=== PATIENT | female | born 1955 | race Caucasian/White ===

== ENCOUNTER 2018-07-05 11:47 | Emergency (ER) | payer OTHER ==
--- NOTE | 2018-07-05 12:28 | EDPHY ---
H & P Stated Complaint: n/v/d, dizziness, vertigo Time Seen by Provider: 07/05/18 12:27 - Personal History Current Tetanus Diphtheria and Acellular Pertussis (TDAP): Unsure - Medical/Surgical History Hx Asthma: No Hx Chronic Respiratory Disease: No Hx Diabetes: No Hx Cardiac Disease: No Hx Renal Disease: No Hx Cirrhosis: No Hx Alcoholism: No Hx HIV/AIDS: No Hx Splenectomy or Spleen Trauma: No Other PMH: hypothyroid, vertigo - Social History Smoking Status: Never smoked Constitutional: Initial Vital Signs Temperature (C) 36.5 C 07/05/18 12:00 Heart Rate 78 07/05/18 12:00 Respiratory Rate 17 07/05/18 12:00 Blood Pressure 175/89 H 07/05/18 12:00 O2 Sat (%) 96 07/05/18 12:00 O2 Delivery Mode Room Air Allergies/Adverse Reactions: acetaminophen [From Percocet] Allergy (Verified 07/05/18 12:07) oxycodone [From Percocet] Allergy (Verified 07/05/18 12:07) Penicillins Allergy (Verified 07/05/18 12:07) prochlorperazine [From Compazine] Allergy (Verified 07/05/18 12:07) Home Medications: Medication Instructions Recorded LORazepam [Ativan 1 mg (RX)] 1 mg PO TID PRN #14 tab 07/05/18 Meclizine HCl [Meclizine HCl 12.5 12.5 mg PO QID PRN #20 tab 07/05/18 mg (*)] Synthroid 07/05/18 Medical Decision Making ED Course/Re-evaluation: CHIEF COMPLAINT: Dizziness, N/V HISTORY OF PRESENT ILLNESS: The patient is a 62 y/o female with a history of M nire's disease complaining of severe dizziness, nausea, and vomiting onset this morning following similar symptoms one week ago. She was diagnosed with M nire's several years ago following a history of mild balance issues and " stuffy ears" with a negative brain MRI. Her symptoms at that time were quite mild compared to her two recent episodes. Today she says her symptoms are "10 times as bad" as one week ago. She can't walk or move her body or head without severe aggravation of symptoms. She has been unable to tolerate PO fluids. She denies weakness, paresthesias, vision changes, fever, recent illness, recent trauma. Her last brain MRI was in 2014 at [facility] and was normal. REVIEW OF SYSTEMS: A comprehensive 10 system review of systems is otherwise negative aside from elements mentioned in the history of present illness and medical decision making. PHYSICAL EXAM: HR, BP, O2 Sat, RR. Temp noted General Appearance: Alert, well hydrated, appropriate, uncomfortable-appearing lying on left side not moving. Head: Atraumatic without scalp tenderness or obvious injury Eyes: Pupils equal, round, reactive to light and accommodation, EOMI, no trauma , no injection. Ears: Clear bilaterally, no perforation, normal landmarks Nose: Atraumatic, no rhinorrhea, clear. Throat: Mucus membranes moist. Neck: Supple, nontender, no lymphadenopathy. Respiratory: No retractions, no distress, no wheezes, and no accessory muscle use. Lungs are clear to auscultation bilaterally. Cardiovascular: Regular rate and rhythm, no murmurs, rubs, or gallops. Good capillary refill all extremities. Gastrointestinal: Abdomen is soft, nontender, non-distended, no masses, no rebound, no guarding, no peritoneal signs. Musculoskeletal: Normal active ROM of all extremities, atraumatic. Neurological: Alert, appropriate, and interactive. The patient has non-focal cranial nerves, motor, sensory, and cerebellar exam. Skin: No rashes, good turgor, no nodules on palpation. Past medical history: Hypothyroidism, Mnire's disease, prior brain MRIs at [facility] Past surgical history: Noncontributory Family history: Noncontributory Social history: at bedside. Lives in [place]. [employer] employee. Reviewed 2014 MRI w/wout impression ordered by Dr. Cali at [facility] on patient's phone - no abnormalities in pontine or temporal bone, normal clear canals, no signs of infarct. DIFFERENTIAL DIAGNOSIS: The differential diagnosis for the patient's dizziness included but was not limited to peripheral and central causes of vertigo, orthostatic causes including dehydration, cardiogenic and neurogenic causes, and blood loss. MEDICAL DECISION MAKING: This is a 62 y/o female with a history of Mnire's disease who presents with her second bout of severe dizziness and nausea and vomiting this week. She is quite uncomfortable on exam and very reluctant to move due to how significantly this exacerbates her symptoms. Neuroimaging considered, but will not proceed at this time as she's had complete prior work up for similar but milder symptoms and has no neuro deficits on exam. Plan for ISTAT and symptomatic treatment with 2L IV NS, 4mg IV Zofran, 25mg IV Benadryl, 1mg PO Ativan. 1350: Reassessed patient. She is sleeping comfortable. 1435: Reassessed patient. Her symptoms have improved significantly, though she feels groggy from the medications. Reassessed patient and discussed findings. She is feeling much better and is able to walk through the department with assistance due to some unsteadiness. I offered admission, but she would prefer to go home with mediations and sleep in her own bed. Scripts for Zofran, Meclizine, and Ativan provided. Recommended following up with her neurologist this week. Return precautions discussed. She is comfortable with this plan. - Data Points Laboratory Results: 07/05/18 13:13 POC Hgb 14.3 gm/dL gm/dL (12.6-16.3) POC Hct 42 % % (38-47) POC Sodium 142 mEq/L mEq/L (135-145) POC Potassium 3.6 mEq/L mEq/L (3.3-5.0) POC Chloride 107 mEq/L mEq/L (97-110) POC BUN 17 mg/dL mg/dL (7-23) POC Creatinine 0.8 mg/dL mg/dL (0.6-1.0) POC Glucose 149 mg/dL H mg/dL (70-100) Medications Given: Discontinued Medications Diphenhydramine HCl (Benadryl Injection) 25 mg IVP EDNOW ONE Stop: 07/05/18 12:56 Last Admin: 07/05/18 13:00 Dose: 25 mg Sodium Chloride (Ns) 1,000 mls @ 0 mls/hr IV EDNOW ONE; Wide Open PRN Reason: Protocol Stop: 07/05/18 12:56 Last Admin: 07/05/18 13:00 Dose: 1,000 mls Sodium Chloride (Ns) 1,000 mls @ 0 mls/hr IV EDNOW ONE; Wide Open PRN Reason: Protocol Stop: 07/05/18 12:56 Last Admin: 07/05/18 13:00 Dose: 1,000 mls Lorazepam (Ativan Injection) 1 mg IVP EDNOW ONE Stop: 07/05/18 12:56 Last Admin: 07/05/18 13:18 Dose: 1 mg Ondansetron HCl (Zofran) 4 mg IVP EDNOW ONE Stop: 07/05/18 12:56 Last Admin: 07/05/18 13:00 Dose: 4 mg Point of Care Test Results: Chemistry 07/05/18 13:13 POC Sodium 142 mEq/L mEq/L (135-145) POC Potassium 3.6 mEq/L mEq/L (3.3-5.0) POC Chloride 107 mEq/L mEq/L (97-110) POC BUN 17 mg/dL mg/dL (7-23) POC Creatinine 0.8 mg/dL mg/dL (0.6-1.0) POC Glucose 149 mg/dL H mg/dL (70-100) ISTAT H&H 07/05/18 13:13 POC Hgb 14.3 gm/dL gm/dL (12.6-16.3) POC Hct 42 % % (38-47) Departure - Departure Disposition: Home, Routine, Self-Care Clinical Impression: Menieres disease Qualifiers: Laterality: unspecified laterality Qualified Code(s): H81.09 - Meniere's disease, unspecified ear Condition: Good Instructions: Meniere Disease (ED) Additional Instructions: Take Meclizine and Ativan together as prescribed if needed for ongoing dizziness. These medications can make you drowsy. Do not drive after using them. Use Zofran as prescribed if needed for nausea and vomiting. Follow up with your neurologist in the next week. Return to the ED for severe pain, weakness, numbness, or any other worsening of condition. Referrals: Enrique Begum MD [Medical Doctor] - As per Instructions Prescriptions: LORazepam [Ativan 1 mg (RX)] 1 mg PO TID PRN #14 tab PRN Reason: Anxiety Meclizine HCl [Meclizine HCl 12.5 mg (*)] 12.5 mg PO QID PRN #20 tab PRN Reason: Dizziness Report Scribed for: Andrew De León Report Scribed by: Laura Saleh Date of Report: 07/05/18 Time of Report: 12:40
[2018-07-05] MEDS ORDERED: LORazepam 2 MG/ML INJ IVP ONE (12:55)
[2018-07-05] MEDS ORDERED: ONDANSETRON 4 MG/2 ML VIAL IVP ONE (12:55)
[2018-07-05] MEDS ORDERED: NS 1,000 ML IV ONE ×2 (12:55)
[2018-07-05] MEDS ORDERED: LORAZEPAM 1 MG PREPACK#4 BTL TAKEHOME ONE (15:04)
[2018-07-05] MEDS ORDERED: ONDANSETRON 4MG PREPACK#2 BTL TAKEHOME ONE (15:05)
[2018-07-05 15:38] VITALS: BP 162/90
== END 2018-07-05 15:45 | disposition home or self-care (01) ==
LOC: EDUNIT#
DX: H81.09 Meniere's disease, unspecified ear (principal); E86.9 Volume depletion, unspecified; E03.9 Hypothyroidism, unspecified
CPT/HCPCS: 82435-PO; 82565-PO; 82947-PO; 84132-PO; 84295-PO; 84520-PO; 85014-PO; 96374; J1200; J2060; J2405